=== PATIENT | male | born 1970 | race Caucasian/White ===

== ENCOUNTER 2018-10-26 17:25 | Emergency (ER) | payer MEDICARE ==
[~2018-10-26] VITALS: Ht 182.9 cm; Wt 63.5 kg
[2018-10-26 17:43] VITALS: BP 131/80
--- NOTE | 2018-10-26 18:04 | PHYS DOC ---
Past Medical History Past Medical History: No Pertinent History (GORDON DACOSTA MD) Past Surgical History: No Surgical History (GORDON DACOSTA MD) Alcohol Use: None Drug Use: None (GORDON DACOSTA MD) Adult General Chief Complaint Chief Complaint: FOREIGN BODY HPI HPI Patient is a 48 year old male who presents with a foreign body in right foot. Patient complaining of painful area in bottom of his right foot for 2 weeks and states he thinks something is in his foot because he feels something poking him. (GORDON DACOSTA MD) Review of Systems Review of Systems Constitutional: Denies fever or chills [] Eyes: Denies change in visual acuity, redness, or eye pain [] HENT: Denies nasal congestion or sore throat [] Respiratory: Denies cough or shortness of breath [] Cardiovascular: No additional information not addressed in HPI [] GI: Denies abdominal pain, nausea, vomiting, bloody stools or diarrhea [] : Denies dysuria or hematuria [] Musculoskeletal: Denies back pain or joint pain [] Integument: Denies rash or skin lesions [] Neurologic: Denies headache, focal weakness or sensory changes [] Endocrine: Denies polyuria or polydipsia [] All other systems were reviewed and found to be within normal limits, except as documented in this note. (GORDON DACOSTA MD) Allergies Allergies Allergies Coded Allergies Type Severity Reaction Last Updated Verified No Known Drug Allergies 10/26/18 No (JOSEPH MATA MD) Physical Exam Physical Exam Constitutional: Well developed, well nourished, mild distress, non-toxic appearance. [] HENT: Normocephalic, atraumatic. Eyes: PERRLA, EOMI, conjunctiva normal, no discharge. [] Neck: Normal range of motion, no tenderness, supple, no stridor. [] Cardiovascular:Heart rate regular rhythm, no murmur [] Lungs & Thorax: Bilateral breath sounds clear to auscultation [] Back: No tenderness, no CVA tenderness. [] Extremities: 1 x 1 cm corn in forefoot of right foot without foreign body Neurologic: Alert and oriented X 3, no focal deficits noted. [] (GORDON DACOSTA MD) Current Patient Data Vital Signs Vital Signs Date Time Temp Pulse Resp B/P (MAP) Pulse Ox O2 Delivery O2 Flow Rate FiO2 10/26/18 17:43 97.9 84 18 131/80 (97) 99 Room Air 97.9 (JOSEPH MATA MD) EKG EKG [] (GORDON DACOSAT MD) Radiology/Procedures Radiology/Procedures [] (GORDON DACOSTA MD) Course & Med Decision Making Course & Med Decision Making Pertinent Labs and Imaging studies reviewed. (See chart for details) [] (GORDON DACOSTA MD) Course & Med Decision Making latoya asked me to look at xray - aniceto. xray neg. pt discharged as per her previous plan (JOSEPH MATA MD) Dragon Disclaimer Dragon Disclaimer This electronic medical record was generated, in whole or in part, using a voice recognition dictation system. (GORDON DACOSTA MD) Departure Departure Impression: Primary Impression: Calluse Disposition: 01 HOME, SELF-CARE Referrals: BREANA AGUIRRE MD (PCP) Patient Instructions: Corns and Calluses-SportsMed Additional Instructions: Used [id number]-[id number] corn medication GORDON DACOSTA MD Oct 26, 2018 18:04 JOSEPH MATA MD Oct 26, 2018 18:31
--- NOTE | 2018-10-26 18:20 | RAD ---
Study: FOOT RIGHT 2V Indication: Possible foreign body. Comparison: None. Findings: No acute fracture or malalignment. No significant degenerative changes. No retained radiopaque foreign body identified. Impression: No radiopaque foreign body seen within the soft tissues of the foot or ankle. Unremarkable osseous structures. Electronically signed by: GALE ADORNO MD (10/26/2018 6:17 PM) [id number]
== END 2018-10-26 18:40 | disposition home or self-care (01) ==
LOC: ER 17:25
DX: S90.851A Superficial foreign body, right foot, initial encounter (principal); L84 Corns and callosities; W45.8XXA Other foreign body or object entering through skin, initial encounter; Y93.89 Activity, other specified; Y92.89 Other specified places as the place of occurrence of the external cause; Y99.8 Other external cause status
CPT/HCPCS: 73620; 99284